=== PATIENT | male | born 1970 | race African-American/Black ===

== ENCOUNTER 2018-10-11 11:22 | Day surgery (SDC) | payer OTHER ==
[2018-10-10 13:09] VITALS: BMI 45.8
[2018-10-11 12:48] VITALS: TEMP 97.8
[2018-10-11 13:16] VITALS: PULSE 72
[2018-10-11 13:36] VITALS: BP 144/91
--- NOTE | 2018-10-12 17:39 | PATH ---
Surgical Pathology Report Patient Name: VALERIE RICCI [facility]. Rec. #: [id number] /Age/Gender: 1970 (Age: 48) / M Account: [id number] Location: U-ENDOSCOPY Taken: 10/11/2018 Received: 10/11/2018 Reported: 10/12/2018 Physicians: Moshe Byrd D.O. Specimen(s) Received A: CECUM POLYPS B: SPLENIC FLEXURE POLYP Clinical History Screening Postoperative diagnosis: Colon polyps, hemorrhoids Final Diagnosis A. CECUM, POLYPS, BIOPSY: POLYPOID COLONIC MUCOSA WITH PROMINENT LYMPHOID AGGREGATE. B. COLON, SPLENIC FLEXURE, POLYP, BIOPSY: POLYPOID COLONIC MUCOSA WITHOUT SIGNIFICANT PATHOLOGIC FINDINGS. Electronically Signed Magdalena Stearns M.D. Gross Description A. Received in formalin, labeled "polyps cecum" are 3 mckeon, irregular portions of soft tissue ranging from 0.3-0.5 cm. in greatest dimension. The specimens are submitted in toto in one cassette. B. Received in formalin, labeled "polyp splenic flexure" are 2 mckeon, irregular portions of soft tissue measuring 0.3 and 0.4 cm. in greatest dimension. The specimens are submitted in toto in one cassette. 10/11/201810/11/2018
== END 2018-10-11 13:37 | disposition home or self-care (01) ==
LOC: JASU-ENDO 11:22
PROVIDERS: ATTEND Internal Medicine Gastroenterology
PROC: 0DBL8ZX Excision of Transverse Colon, Via Natural or Artificial Opening Endoscopic, Diagnostic (ICD-10-PCS; 2018-10-11)
PROC: 0DBH8ZX Excision of Cecum, Via Natural or Artificial Opening Endoscopic, Diagnostic (ICD-10-PCS; principal; 2018-10-11 12:00)
DX: Z12.11 Encounter for screening for malignant neoplasm of colon (principal); D12.0 Benign neoplasm of cecum; D12.3 Benign neoplasm of transverse colon; K64.8 Other hemorrhoids
CPT/HCPCS: 88305-TC

== ENCOUNTER 2018-11-08 09:39 | Day surgery (SDC) | payer OTHER ==
[2018-11-07 14:20] VITALS: BMI 51.3
[2018-11-08] MEDS ORDERED: MIDAZOLAM HCL 2 MG/2 ML SINGLE DOSE VIAL ONE ×2 (11:28)
[2018-11-08] MEDS ORDERED: TETRACAINE/BENZOCAINE/BUTAMBEN 20 GM SPR TP ONE ×2 (11:30→11:42)
[2018-11-08] MEDS ORDERED: BENZOCAINE 20 % GEL TUBE MM ONE (11:42)
[2018-11-08] MEDS ORDERED: HURRICAINE SP EXT TUBE 1 EA EACH TP ONE (11:42)
[2018-11-08 12:10] VITALS: TEMP 97.1
[2018-11-08 12:56] VITALS: BP 147/91; PULSE 78
== END 2018-11-08 12:56 | disposition home or self-care (01) ==
LOC: JASU-ENDO 09:39
PROVIDERS: ATTEND Internal Medicine Gastroenterology
PROC: 0DJ08ZZ Inspection of Upper Intestinal Tract, Via Natural or Artificial Opening Endoscopic (ICD-10-PCS; principal; 2018-11-08 10:15)
DX: K21.9 Gastro-esophageal reflux disease without esophagitis (principal)

== ENCOUNTER 2024-01-15 04:32 | Day surgery (SDC) | payer OTHER ==
[2024-01-12 10:12] VITALS: BMI 47.2
[2024-01-15 08:33] VITALS: TEMP 97.7
[2024-01-15 09:02] VITALS: BP 126/74; PULSE 69; RESP 18
== END 2024-01-15 09:15 | disposition home or self-care (01) ==
LOC: JASU-ENDO 04:32
PROVIDERS: ATTEND Internal Medicine Gastroenterology
PROC: 0DJ08ZZ Inspection of Upper Intestinal Tract, Via Natural or Artificial Opening Endoscopic (ICD-10-PCS; 2024-01-15)
PROC: 0DB68ZX Excision of Stomach, Via Natural or Artificial Opening Endoscopic, Diagnostic (ICD-10-PCS; principal; 2024-01-15 08:00)
DX: K22.2 Esophageal obstruction (principal)
CPT/HCPCS: 88305-TC; 88342-TC